=== PATIENT | male | born 1990 | race Caucasian/White ===

== ENCOUNTER 2016-10-20 11:00 | Emergency (ER) | payer BC, MEDICAID | END 2016-10-20 12:10 | disposition home or self-care (01) | LOC: D.ER 11:00 | DX: S80.02XA Contusion of left knee, initial encounter (principal); W19.XXXA Unspecified fall, initial encounter; Y93.89 Activity, other specified; Y92.89 Other specified places as the place of occurrence of the external cause ==

== ENCOUNTER 2017-11-24 07:57 | Emergency (ER) | payer MEDICAID | END 2017-11-24 09:33 | disposition home or self-care (01) | LOC: D.ER 07:57 | DX: J20.9 Acute bronchitis, unspecified (principal); F17.200 Nicotine dependence, unspecified, uncomplicated ==

== ENCOUNTER 2018-12-20 20:52 | Emergency (ER) | payer SELFPAY ==
[2018-12-20 21:36] VITALS: BP 132/83; BMI 19.8
[2018-12-20] MEDS ORDERED: CLEOCIN HCL300 MG PO (21:48)
[2018-12-20] MEDS ORDERED: ULTRAM50 MG PO (21:48)
== END 2018-12-20 23:29 | disposition home or self-care (01) ==
LOC: D.ER 20:52
DX: K04.7 Periapical abscess without sinus (principal)

== ENCOUNTER 2019-01-06 09:23 | Emergency (ER) | payer SELFPAY ==
[~2019-01-06] VITALS: Ht 185.4 cm; Wt 68.2 kg
[~2019-01-06 09:23] MED LIST: CLEOCIN HCL300 MG PO; ULTRAM50 MG PO
[2019-01-06 09:34] VITALS: Ht 185.4 cm; Wt 68.2 kg
[2019-01-06 10:01] LABS: HEMATOCRIT 44.7 % (42.0-54.0); HEMOGLOBIN 16.2 g/dL (13.5-17.5); MCH 33.3 pg (26.0-34.0); MCHC 36.2 g/dL (31.0-37.0); MEAN PLATELET VOLUME 9.6 fL (7.4-10.4); PLATELET COUNT 206 10x3/uL (130-400); RBC 4.86 10x6/uL (4.20-6.10); RDW 13.5 % (11.5-14.5); WBC 4.9 10x3/uL (4.8-10.8)
[2019-01-06 10:15] LABS: ALBUMIN 3.9 g/dL (3.4-5.0); ALKALINE PHOSPHATASE 75 U/L (46-116); ALT (SGPT) 41 U/L (10-68); BILIRUBIN - TOTAL 0.41 mg/dL (0.2-1.3); CALC OSMOLALITY 279 mosm/kg (275-300); CALCIUM 8.9 mg/dL (8.5-10.1); CARBON DIOXIDE 29.8 mmol/L (21.0-32.0); CHLORIDE - SERUM 106 mmol/L (98-107); CREATININE - SERUM 0.8 mg/dL (0.6-1.3); GLUCOSE 92 mg/dL (74-106); POTASSIUM - SERUM 4.1 mmol/L (3.5-5.1); PROTEIN - SERUM 6.9 g/dL (6.4-8.2); SODIUM 141 mmol/L (136-145); UREA NITROGEN 9 mg/dL (7-18); eGFR NON AFRICAN AMERICAN > 90 mL/min (90-120)
[2019-01-06 10:19] LABS: AMYLASE - SERUM 64 U/L (25-115); LIPASE 180 U/L (73-393); TROPONIN-I < 0.017 ng/mL (0.000-0.060)
[2019-01-06 10:39] LABS: EOSINOPHILS 2 % (0-7); LYMPHOCYTES 13 % (15-50); MONOCYTES 21 % (2-11); NEUTROPHILS 64 % (40-80); PLATELET ESTIMATE NORMAL
[2019-01-06 10:46] LABS: APPEARANCE CLEAR (CLEAR); BILIRUBIN NEGATIVE (NEGATIVE); COLOR STRAW (YELLOW); GLUCOSE NEGATIVE (NEGATIVE); KETONE NEGATIVE (NEGATIVE); NITRITE NEGATIVE (NEGATIVE); PROTEIN NEGATIVE (NEGATIVE); SPECIFIC GRAVITY 1.005 (1.005-1.020); UROBILINOGEN NORMAL (NORMAL)
[2019-01-06] MEDS ORDERED: HYDROCODON-ACE1 EAC7 PO (11:25)
[2019-01-06] MEDS ORDERED: PROTONIX40 MG PO (11:25)
[2019-01-06 11:45] VITALS: BP 128/82
== END 2019-01-06 11:42 | disposition home or self-care (01) ==
LOC: D.ER 09:23
PROVIDERS: Emergency Medicine
DX: R10.13 Epigastric pain (principal)